=== PATIENT | male | born 1990 | race Caucasian/White ===

== ENCOUNTER 2018-12-13 16:39 | Emergency (ER) | payer OTHER ==
[~2018-12-13] VITALS: Ht 172.7 cm; Wt 79.4 kg
== END 2018-12-13 17:58 | disposition home or self-care (01) ==
LOC: ER 16:39
DX: S70.311A Abrasion, right thigh, initial encounter (principal); W54.0XXA Bitten by dog, initial encounter; Y93.89 Activity, other specified; Y92.89 Other specified places as the place of occurrence of the external cause; Y99.8 Other external cause status

== ENCOUNTER → 2018-12-14 | Emergency (ER) | payer OTHER ==
[~2018-12-14] VITALS: Ht 172.7 cm; Wt 79.4 kg
== END | disposition left against medical advice (07) ==
LOC: ER 04:10
DX: Z53.20 Procedure and treatment not carried out because of patient's decision for unspecified reasons (principal)